=== PATIENT | male | born 1975 | race Caucasian/White ===

== ENCOUNTER 2019-07-25 19:55 | Emergency (ER) | payer MEDICAID ==
[~2019-07-25] VITALS: Ht 182.9 cm; Wt 95.3 kg
[2019-07-25 19:55] VITALS: BP 116/76
--- NOTE | 2019-07-25 19:55 | NUR ---
BIBA TO [facility]
--- NOTE | 2019-07-25 20:28 | NUR ---
RETURN FROM CT VIA WC; TAKEN TO BED 11.
--- NOTE | 2019-07-25 20:30 | NUR ---
PT 44 Y/O MALE BIBA BLS FOR C/O [facility] X 5 DAYS. PT AAO X 4. PT HAS C/O PAIN 02/05. DENIES N/V/D. 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 PT STATES HE HAS HTN BUT DOES NOT TAKE MEDICATIONS. RESPIRATIONS ARE ELLIE AND UNLABORED. SKIN IS WARM AND DRY TO TOUCH. PT RESTING IN BED EYES CLOSED. BED LOCKED IN PLACE AND IN LOWEST POSITION. MEDHX: HTN, PITUITARY TUMOR. ALLERGIES: NKA
--- NOTE | 2019-07-25 21:20 | NUR ---
DR RAMIREZ AT BEDSIDE.
[2019-07-25] MEDS ORDERED: SUMAtriptan 6 MG/0.5 ML VIAL SUBQ ONE (21:25)
[2019-07-25] MEDS ORDERED: MORPHINE SULFATE 4 MG/ML SYR IVP ONE ×2 (21:25→23:35)
[2019-07-25] MEDS ORDERED: NACL 0.9% 1,000 ML IV ONE (21:25)
[2019-07-26 00:12] VITALS: BP 118/80
--- NOTE | 2019-07-26 00:12 | NUR ---
Patient discharged with v/s stable. Pt states pain reduced to 7/10 and tollerable. Written and verbal after care instructions given and explained. Provided with number and address for PCP. Patient alert, oriented and verbalized understanding of instructions. Ambulatory with steady gait. All questions addressed prior to discharge. ID band removed. Patient advised to follow up with PMD and when to return to ER. Rx of Imitrex given. Patient educated on indication of medication including possible reaction and side effects. Opportunity to ask questions provided and answered.
== END 2019-07-26 00:12 | disposition home or self-care (01) ==
LOC: MED 19:55
DX: G43.909 Migraine, unspecified, not intractable, without status migrainosus (principal); I10 Essential (primary) hypertension; E03.9 Hypothyroidism, unspecified; Z86.018 Personal history of other benign neoplasm
CPT/HCPCS: 70450; 96372; 96374; 96376; 99284; J2270; J3030; J7030